=== PATIENT | male | born 1990 | race Caucasian/White ===

== ENCOUNTER 2018-10-22 18:30 | Emergency (ER) | payer SELFPAY ==
--- NOTE | 2018-10-22 20:10 | ER ---
Nurse's Notes [facility] Department Name: Chris Garcia Age: 28 yrs Sex: Male : 1990 Arrival Date: 10/22/2018 Time: 18:33 Bed 8 Private MD: None, None Diagnosis: Acute pharyngitis Presentation: 10/22 18:41 Presenting complaint: Patient states: Sorethroat and pain when swallowing since Monday, reports low grade fevers controlled with tylenol, last does around 1100 today, denies N/V/D. Transition of care: patient was not received from another setting of care. Onset of symptoms was October 22, 2018. Risk Assessment: Do you want to hurt yourself or someone else? Patient reports no desire to harm self or others. Initial Sepsis Screen: Does the patient meet any 2 criteria? No. Patient's initial sepsis screen is negative. Does the patient have a suspected source of infection? No. Patient's initial sepsis screen is negative. Care prior to arrival: None. 18:41 Method Of Arrival: Ambulatory 18:41 Acuity: SAMI 4 sg Historical: - Allergies: 18:44 diclofenac sodium; sg - Home Meds: 18:44 None [Active]; sg - PMHx: 18:44 None; sg - PSHx: 18:44 None; sg - Immunization history:: Adult Immunizations up to date. - Social history:: Smoking status: Patient uses tobacco products, smokes one-half pack cigarettes per day. - Ebola Screening: : Patient negative for fever greater than or equal to 101.5 degrees Fahrenheit, and additional compatible Ebola Virus Disease symptoms Patient denies exposure to infectious person Patient denies travel to an Ebola-affected area in the 21 days before illness onset No symptoms or risks identified at this time. Screenin:46 Abuse screen: Denies threats or abuse. Nutritional screening: No deficits noted. tl2 Tuberculosis screening: No symptoms or risk factors identified. Fall Risk None identified. Assessment: 19:46 Respiratory: Airway. tl2 19:47 General: Appears in no apparent distress. uncomfortable, Behavior is calm, cooperative, tl2 appropriate for age. Pain: Complains of pain in throat. Neuro: Level of Consciousness is awake, alert, obeys commands, Oriented to person, place, time, situation. Cardiovascular: Denies chest pain. Respiratory: Airway is patent Respiratory effort is even, unlabored, Respiratory pattern is regular, symmetrical, Breath sounds are clear bilaterally. GI: No signs and/or symptoms were reported involving the gastrointestinal system. : No signs and/or symptoms were reported regarding the genitourinary system. EENT: Throat is reddened. Derm: Skin is pink, warm \T\ dry. 20:20 Reassessment: No changes from previously documented assessment. Patient and/or family tl1 updated on plan of care and expected duration. Pain level reassessed. Patient is alert, oriented x 3, equal unlabored respirations, skin warm/dry/pink. Vital Signs: 18:42 BP 159 / 97; Pulse 102; Resp 16; Temp 99.7; Pulse Ox 100% on R/A; Weight 86.18 kg (R); sg Height 6 ft. 0 in. (182.88 cm) (R); Pain 6/10; 19:46 BP 148 / 93; Pulse 95; Resp 18; Pulse Ox 98% on R/A; tl2 20:15 Temp 99.3(O); oe 20:19 BP 146 / 90; Pulse 93; Resp 16; Pulse Ox 100% ; Pain 5/10; tl1 18:42 Body Mass Index 25.77 (86.18 kg, 182.88 cm) sg ED Course: 18:33 Patient arrived in ED. sb2 18:33 None, None is Private Physician. sb2 18:42 Triage completed. sg 18:43 Arm band placed on. sg 18:44 Fam Bobo NP is PHCP. pm1 18:44 Wilmar Jackson MD is Attending Physician. pm1 19:47 Patient has correct armband on for positive identification. Bed in low position. Call tl2 light in reach. Side rails up X 1. 20:19 No provider procedures requiring assistance completed. Patient did not have IV access tl1 during this emergency room visit. 20:22 Kim Garcia RN is Primary Nurse. tl1 Administered Medications: No medications were administered Outcome: 20:09 Discharge ordered by . pm1 20:20 Discharged to home ambulatory. tl1 20:20 Condition: good 20:20 Discharge instructions given to patient, Instructed on discharge instructions, follow up and referral plans. medication usage, Demonstrated understanding of instructions, follow-up care, medications. 20:22 Patient left the ED. tl1 Signatures: Zachary Crocker RN RN sg Kim Garcia RN RN tl1 Fam Bobo, LUCR[employer]IA [employer] FINISHER pm1 Amaya Cronin RN RN tl2 Jone Jc Sheri sb2
--- NOTE | 2018-10-22 20:10 | EDPHYS ---
Physician Documentation [facility] Name: Chris Garcia Age: 28 yrs Sex: Male : 1990 Arrival Date: 10/22/2018 Time: 18:33 Bed 8 Private MD: None, None ED Physician Wilmar Jackson HPI: 10/22 20:07 This 28 yrs old Male presents to ER via Ambulatory with complaints of Sore pm1 Throat. 20:07 The patient presents with sore throat. The patient describes throat pain as raw, pm1 scratchy. Onset: The symptoms/episode began/occurred 2 day(s) ago. Modifying factors: the symptoms are aggravated by swallowing, Patient's oral intake status: good unaware of sick contact. Associated signs and symptoms: Pertinent positives: cough, Pertinent negatives fever, flu-like symptoms, headache, vomiting. The patient has not recently seen a physician. Historical: - Allergies: 18:44 diclofenac sodium; sg - Home Meds: 18:44 None [Active]; sg - PMHx: 18:44 None; sg - PSHx: 18:44 None; sg - Immunization history:: Adult Immunizations up to date. - Social history:: Smoking status: Patient uses tobacco products, smokes one-half pack cigarettes per day. - Ebola Screening: : Patient negative for fever greater than or equal to 101.5 degrees Fahrenheit, and additional compatible Ebola Virus Disease symptoms Patient denies exposure to infectious person Patient denies travel to an Ebola-affected area in the 21 days before illness onset No symptoms or risks identified at this time. ROS: 20:07 Constitutional: Negative for fever, chills, and weight loss, Eyes: Negative for injury, pm1 pain, redness, and discharge. 20:07 Neck: Negative for injury, pain, and swelling, Cardiovascular: Negative for chest pain, palpitations, and edema, Respiratory: Negative for shortness of breath, cough, wheezing, and pleuritic chest pain, Abdomen/GI: Negative for abdominal pain, nausea, vomiting, diarrhea, and constipation, Back: Negative for injury and pain, : Negative for injury, bleeding, discharge, and swelling, MS/Extremity: Negative for injury and deformity, Skin: Negative for injury, rash, and discoloration, Neuro: Negative for headache, weakness, numbness, tingling, and seizure. 20:07 ENT: Positive for sore throat, Negative for drainage from ear(s), ear pain. Exam: 20:07 Constitutional: This is a well developed, well nourished patient who is awake, alert, pm1 and in no acute distress. Head/Face: Normocephalic, atraumatic. Eyes: Pupils equal round and reactive to light, extra-ocular motions intact. Lids and lashes normal. Conjunctiva and sclera are non-icteric and not injected. Cornea within normal limits. Periorbital areas with no swelling, redness, or edema. 20:07 Neck: Trachea midline, no thyromegaly or masses palpated, and no cervical lymphadenopathy. Supple, full range of motion without nuchal rigidity, or vertebral point tenderness. No Meningismus. Chest/axilla: Normal chest wall appearance and motion. Nontender with no deformity. No lesions are appreciated. Cardiovascular: Regular rate and rhythm with a normal S1 and S2. No gallops, murmurs, or rubs. Normal PMI, no JVD. No pulse deficits. Respiratory: Lungs have equal breath sounds bilaterally, clear to auscultation and percussion. No rales, rhonchi or wheezes noted. No increased work of breathing, no retractions or nasal flaring. Abdomen/GI: Soft, non-tender, with normal bowel sounds. No distension or tympany. No guarding or rebound. No evidence of tenderness throughout. Back: No spinal tenderness. No costovertebral tenderness. Full range of motion. Skin: Warm, dry with normal turgor. Normal color with no rashes, no lesions, and no evidence of cellulitis. MS/ Extremity: Pulses equal, no cyanosis. Neurovascular intact. Full, normal range of motion. 20:07 ENT: External ear(s): are unremarkable, Ear canal(s): are normal, TM's: are normal, no evidence of bulging, no dullness, no erythema, no fluid levels, no hemotympanum, no rupture, Nose: is normal, Mouth: is normal, no gum abnomalities, no lip abnormalities, no mucosal abnormalities, no tongue abnormalities, Posterior pharynx: Airway: no evidence of obstruction, patent, Tonsils: bilaterally enlarged, with erythema, no exudate, no ulcerations, peritonsillar mass, is not appreciated, pooling of secretions, is not appreciated. 20:07 Neuro: Orientation: is normal, Motor: is normal. Vital Signs: 18:42 BP 159 / 97; Pulse 102; Resp 16; Temp 99.7; Pulse Ox 100% on R/A; Weight 86.18 kg (R); sg Height 6 ft. 0 in. (182.88 cm) (R); Pain 6/10; 19:46 BP 148 / 93; Pulse 95; Resp 18; Pulse Ox 98% on R/A; tl2 20:15 Temp 99.3(O); oe 20:19 BP 146 / 90; Pulse 93; Resp 16; Pulse Ox 100% ; Pain 5/10; tl1 18:42 Body Mass Index 25.77 (86.18 kg, 182.88 cm) sg MDM: 18:48 Patient medically screened. pm1 20:07 Data reviewed: vital signs. Data interpreted: Pulse oximetry: on room air is 98 %. pm1 Interpretation: normal. Counseling: I had a detailed discussion with the patient and/or guardian regarding: the historical points, exam findings, and any diagnostic results supporting the discharge/admit diagnosis, lab results, the need for outpatient follow up, to return to the emergency department if symptoms worsen or persist or if there are any questions or concerns that arise at home. 10/22 18:49 Order name: Strep; Complete Time: 19:37 pm1 10/22 18:49 Order name: Flu; Complete Time: 19:37 pm1 10/22 19:25 Order name: Throat Culture EDMS Administered Medications: No medications were administered Disposition: 10/23 07:23 Co-signature as Attending Physician, Wilmar Jackson MD I agree with the assessment and christel plan of care. Disposition: 10/22/18 20:09 Discharged to Home. Impression: Acute pharyngitis. - Condition is Stable. - Discharge Instructions: Pharyngitis. - Work release form, Medication Reconciliation Form, Thank You Letter, Antibiotic Education form. - Follow up: Emergency Department; When: As needed; Reason: Worsening of condition. Follow up: Private Physician; When: 2 - 3 days; Reason: Recheck today's complaints, Continuance of care, Re-evaluation by your physician. - Problem is new. - Symptoms have improved. Signatures: Dispatcher [employer] EDMS Zachary Crocker RN RN sg Wilmar Jackson MD MD cha Lasagna, Tonya, RN RN tl1 Fam Bobo, CRNP CRNP pm1 Corrections: (The following items were deleted from the chart) 10/22 20:22 20:09 10/22/2018 20:09 Discharged to Home. Impression: Acute pharyngitis. Condition is tl1 Stable. Forms are Medication Reconciliation Form, Thank You Letter, Antibiotic Education, Prescription Opioid Use. Follow up: Emergency Department; When: As needed; Reason: Worsening of condition. Follow up: Private Physician; When: 2 - 3 days; Reason: Recheck today's complaints, Continuance of care, Re-evaluation by your physician. Problem is new. Symptoms have improved. pm1
== END 2018-10-22 20:22 | disposition home or self-care (01) ==
LOC: ER 18:30
DX: J02.9 Acute pharyngitis, unspecified (principal); F17.210 Nicotine dependence, cigarettes, uncomplicated
CPT/HCPCS: 87070; 87081; 87804; 99281